=== PATIENT | female | born 1975 ===

== ENCOUNTER 2018-06-18 09:33 | Emergency (ER) | payer OTHER ==
--- NOTE | 2018-06-18 11:25 | C.PDOC ---
History Of Present Illness 43 y/o female presents to the ER complaining of back pain which has been presents for the past 2 days. Patient states that she slipped and fell backwards against a wall.Patient reports that she hit her back against a piece of metal portruding from the wall. She denies having LOC, head injury,CP,SOB, nausea,vomiting, and abdominal pain. Time Seen by Provider: 06/18/18 09:57 Chief Complaint (Nursing): Back Pain History Per: Patient History/Exam Limitations: no limitations Onset/Duration Of Symptoms: Days Current Symptoms Are (Timing): Still Present Severity: Moderate Past Medical History Reviewed: Historical Data, Nursing Documentation, Vital Signs Vital Signs: Last Vital Signs Temp 98.6 F 06/18/18 09:38 Pulse 82 06/18/18 09:38 Resp 18 06/18/18 09:38 BP 131/81 06/18/18 09:38 Pulse Ox 100 06/18/18 09:38 - Medical History PMH: Asthma Other Surgeries: Hx of surgeries Family History: States: No Known Family Hx - Social History Hx Alcohol Use: No Hx Substance Use: No - Immunization History Hx Tetanus Toxoid Vaccination: Yes Hx Influenza Vaccination: No Hx Pneumococcal Vaccination: No Review Of Systems Except As Marked, All Systems Reviewed And Found Negative. Cardiovascular: Negative for: Chest Pain Respiratory: Negative for: Shortness of Breath Gastrointestinal: Negative for: Nausea, Vomiting, Abdominal Pain Musculoskeletal: Positive for: Back Pain Physical Exam - Physical Exam Appears: Non-toxic, No Acute Distress Skin: Warm, Dry, Other (4 cm linear abrasion to mid-back, no surrounding erythema, no streaking) Head: Atraumatic, Normacephalic Neck: Supple Chest: Symmetrical Cardiovascular: Rhythm Regular Respiratory: Normal Breath Sounds, No Rales, No Rhonchi, No Wheezing Back: Other (some tenderness to right mid-back, no crepitus) Extremity: Normal ROM Neurological/Psych: Oriented x3, Normal Speech ED Course And Treatment O2 Sat by Pulse Oximetry: 100 (RA) Pulse Ox Interpretation: Normal Medical Decision Making Medical Decision Making: Plan: --X-Ray-Ribs w/Chest Disposition Counseled Patient/Family Regarding: Studies Performed, Diagnosis, Need For Followup - Disposition Referrals: [facility] [Outside] [facility] [Outside] Disposition: HOME/ ROUTINE Disposition Time: 11:22 Condition: GOOD Additional Instructions: HIPOLITO MONTANO, thank you for letting us take care of you today. Your provider was Moon Covarrubias MD and you were treated for FALL/BACK PAIN. The emergency medical care you received today was directed at your acute symptoms. If you were prescribed any medication, please fill it and take as directed. It may take several days for your symptoms to resolve. Return to the Emergency Department if your symptoms worsen, do not improve, or if you have any other problems. Please contact your doctor or call one of the physicians/clinics you have been referred to that are listed on the Patient Visit Information form that is included in your discharge packet. Bring any paperwork you were given at discharge with you along with any medications you are taking to your follow up visit. Our treatment cannot replace ongoing medical care by a primary care provider outside of the emergency department. Thank you for allowing the [facility] team to be part of your care today. If you had an X-Ray or CT scan: A Radiologist will review the ED reading if any change in treatment is needed we will contact you. If you had a blood, urine, or wound culture: It will take several days for the results, if any change in treatment is needed we will contact you. If you had an STI test: It will take 48 hours for the results. Please call after 1 week if you have not heard back. Instructions: Contusion (DC), Skin Abrasions (DC) Forms: Gen Discharge Inst Mauritanian, [facility] (Mauritanian) - POA Present On Arrival: None - Clinical Impression Clinical Impression: Back abrasion, Contusion of back - Scribe Statement The provider has reviewed the documentation as recorded by the Daren José Provider Attestation: All medical record entries made by the Viviibe were at my direction and personally dictated by me. I have reviewed the chart and agree that the record accurately reflects my personal performance of the history, physical exam, medical decision making, and the department course for this patient. I have also personally directed, reviewed, and agree with the discharge instructions and disposition.
[2018-06-18 11:37] VITALS: BP 126/81; PULSE 70; RESP 16; TEMP 98.7
[2018-06-18 12:20] VITALS: O2SAT 100
--- NOTE | 2018-06-18 15:02 | RAD ---
Date of service: 06/18/2018 PROCEDURE: Radiographs of the Chest and Right Ribs. HISTORY: Injury COMPARISON: None available. TECHNIQUE: Frontal radiograph of the chest and multiple oblique radiographs of the right ribs were obtained. 4 views obtained. FINDINGS: Note the examination is slightly limited due to large body habitus RIGHT RIBS: No fracture or focal lesion visualized. LUNGS: Clear. PLEURA: No pneumothorax or pleural fluid. CARDIOVASCULAR: Normal cardiac size. No pulmonary vascular congestion. No aortic atherosclerotic calcification present OTHER FINDINGS: None. IMPRESSION: Unremarkable radiographs of the chest and right ribs. No definitive radiographic evidence of acute displaced right-sided rib fracture. If symptoms persist or occult fracture suspected clinically consider follow-up CT scan
== END 2018-06-18 11:35 | disposition home or self-care (01) ==
LOC: C.ER 09:33
DX: S30.0XXA Contusion of lower back and pelvis, initial encounter (principal); S30.810A Abrasion of lower back and pelvis, initial encounter; W01.198A Fall on same level from slipping, tripping and stumbling with subsequent striking against other object, initial encounter